=== PATIENT | male | born 1985 | race Caucasian/White ===

== ENCOUNTER 2016-03-27 06:45 | Emergency (ER) | payer SELFPAY ==
[~2016-03-27] VITALS: Ht 172.7 cm; Wt 81.6 kg
--- OUTSIDE RECORDS SUMMARY | 2016-03-27 06:55 | XMS REPORT | Continuity of Care Document ---
Author Author [facility] Organization [facility] Address Unknown Phone Unavailable Care Team Providers Care Low Vision Therapist Name Role Phone No Pcp, Na PCP Unavailable Source Comments Some departments are not documenting in the electronic medical record. If you do not see the information that you expected, contact Release of Information in the Health Information Management department at [phone] for further assistance in locating additional records.[facility] Active Allergies and Adverse Reactions Allergen Noted Date Severity Reactions Comments Bactrim 02/10/2016 Medium HIVES Haldol 02/17/2016 High DYSTONIA Lock jaw and "eyes roll to the back of his head" K-Flex 02/10/2016 Medium HIVES Sulfa (Sulfonamide 02/10/2016 Medium HIVES Antibiotics) Current Medications Prescription Sig. Disp. Refills Start End Date Status Date ascorbic acid (VITAMIN C) Take 1,000 mg by mouth Active 500 mg tablet daily. Indications: VITAMIN C DEFICIENCY MULTIVITAMIN PO Take 1 Tab by mouth Active daily. ibuprofen (ADVIL) 200 mg Take 400 mg by mouth Active tablet every 6 hours as needed for Pain. Take with food. sertraline (ZOLOFT) 100 Take 1 Tab by mouth 30 Tab 0 02/18/19 Active mg tablet daily. 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 Suicide attempt (HCC) 02/10/2016 Sinus tachycardia 02/10/2016 Tobacco abuse 02/10/2016 Hypophosphatemia 02/10/2016 Hypokalemia 02/10/2016 Resolved Problems Problem Noted Date Resolved Date Intentional acetaminophen overdose (HCC) 02/10/2016 02/18/2016 Salicylate overdose 02/10/2016 02/18/2016 Most Recent Encounters Date Type Specialty Providers Description 02/10/2016 Hospital Intensive Care Travis Decker MD Acute hepatic failure - Encounter Jayna Bangura MD 02/12/2016 Social History Tobacco Use Types Packs/Day Years Used Date Current Every Day Smoker Cigarettes 1 10 Tobacco Cessation: Ready to Quit: No; Counseling Given: No Comments: Yes Alcohol Use Drinks/Week oz/Week Comments Yes 0 Standard 18.0 yes, patient with polysubstance history drinks or equivalent 30 Shots of liquor Last Filed Vital Signs Vital Sign Reading Time Taken Blood Pressure 118/67 02/19/2016 9:00 AM HOSPITAL RECEIVING CLERK Pulse 83 02/19/2016 9:00 AM HOSPITAL RECEIVING CLERK Temperature 36.7 C (98.1 F) 02/19/2016 9:00 AM HOSPITAL RECEIVING CLERK Respiratory Rate - - Height 1.7 m (5' 6.93") 02/12/2016 6:00 PM HOSPITAL RECEIVING CLERK Weight 74.5 kg (164 lb 3.9 oz) 02/12/2016 6:00 PM HOSPITAL RECEIVING CLERK Body Mass Index 25.78 02/12/2016 6:00 PM HOSPITAL RECEIVING CLERK Oxygen Saturation 98% 02/19/2016 9:00 AM HOSPITAL RECEIVING CLERK Plan of Care Health Maintenance Due Date Last Done Comments Physical (Comprehensive) 12/22/1991 Exam Pertussis Vaccine 12/22/1995 Tetanus Vaccine 2001 Influenza Vaccine 10/16/2015 Procedures from Last 3 Months Procedure Name Priority Date/Time Associated Diagnosis Comments TELEMETRY STRIPS-SCAN 02/14/2016 Results for this 7:32 AM HOSPITAL RECEIVING CLERK procedure are in the results section. ECG UNCONFIRMED-SCAN 02/13/2016 Results for this 4:24 PM HOSPITAL RECEIVING CLERK procedure are in the results section. ECG-SCAN 02/11/2016 Results for this 7:25 AM HOSPITAL RECEIVING CLERK procedure are in the results section. Results from Last 3 Months PROTIME INR (PT) (02/19/2016 10:00 AM)Only the most recent of 4 results within the time period is included. Component Value Range INR 1.0 0.8-1.2 Specimen Blood COMPREHENSIVE METABOLIC PANEL (02/19/2016 10:00 AM)Only the most recent of 8 results within the time period is included. Component Value Range Sodium 139 137-147 MMOL/L Potassium 4.5 3.5-5.1 MMOL/L Chloride 102 98-110 MMOL/L Glucose 85 70-100 MG/DL Blood Urea Nitrogen 12 7-25 MG/DL Creatinine 0.87 0.4-1.24 MG/DL Calcium 9.9 8.5-10.6 MG/DL Total Protein 7.0 6.0-8.0 G/DL Total Bilirubin 0.6 0.3-1.2 MG/DL Albumin 4.5 3.5-5.0 G/DL Alk Phosphatase 61 25-110 U/L AST (SGOT) 344 (H) 7-40 U/L CO2 30 21-30 MMOL/L ALT (SGPT) 1024 (H) 7-56 U/L Anion Gap 7 3-12 eGFR Non >60Comment: >60 mL/min The eGFR is not validated for use in drug dosing adjustments. Continue to use estimated creatinine clearance per dosing reference text. Please contact the Clinical Pharmacist for questions. eGFR >60Comment: >60 mL/min The eGFR is not validated for use in drug dosing adjustments. Continue to use estimated creatinine clearance per dosing reference text. Please contact the Clinical Pharmacist for questions. Specimen Blood TELEMETRY STRIPS-SCAN (02/14/2016 7:32 AM) Narrative Ordered by an unspecified provider. ECG UNCONFIRMED-SCAN (02/13/2016 4:24 PM) Narrative Ordered by an unspecified provider. CMV QUANT PCR-BLOOD (02/12/2016 8:45 AM) Component Value Range CMV DNA Quant PCR Negative for CMV CMV Comment-Blood This assay uses analyte specific reagents to detect CMV DNA in plasma or fluid. It has not been cleared or approved by the US Food and Drug Administration. The performance characteristics were determined by the [facility]. Results should be correlated with clinical findings. Specimen Blood HEMOCHROMATOSIS HFE GENE ANAL (02/12/2016 3:50 AM) Component Value Range Result Summary COMPLEX (SEE RESULT AND INTERPRETATION) [facility] Results C282Y: Not detected. H63D: Two copies of the H63D mutation were identified. [facility] . This result may be consistent with, but does not confirm a diagnosis of hereditary hemochromatosis (HH). This genotype is found in approximately 1 to 4% of patients with HH in the [place] population. However, the penetrance of this genotype is low and approximately 3 to 5% of clinically unaffected individuals are homozygous for p.H63D. For other ethnicities, the frequency and penetrance of this genotype may differ. This assay does not rule out the presence of other disease-causing mutations in the HFE gene or in other genes associated with hemochromatosis. Genotyping results should be interpreted in the context of clinical findings, family history, and other laboratory testing (e.g. serum transferrin-iron saturation and serum ferritin). Genetic testing and other laboratory testing of an affected family member can determine if this result is of predictive value for this individual. Since the p.H63D alteration has been identified, genetic testing and clinical evaluations of at risk family members could be considered. A genetic consultation may be of benefit. ADDITIONAL INFORMATION An online research opportunity called [employer] ([email or web address]), a project of [employer], is available for the recipient of this genetic test. This patient registry collects de-identified genetic and health information to advance the knowledge of genetic variants. [facility] is a collaborator of [employer]. This may not be applicable for all tests. Test results should be interpreted in the context of clinical findings, family history, and other laboratory data. Misinterpretation of results may occur if the information provided is inaccurate or incomplete. Rare polymorphisms exist that could lead to false-negative or false-positive results. If results obtained do not match the clinical findings, additional testing should be considered. Bone Marrow transplants from allogenic donors will interfere with testing. Call [facility] for instructions for testing patients who have received a bone marrow transplant. Multiple in-silico evaluation tools may have been used to assist in the interpretation of these results. Of note, the sensitivity and specificity of these tools for the determination of pathogenicity is currently unvalidated. This test was developed and its performance characteristics determined by [facility] in a manner consistent with CLIA requirements. This test has not been cleared or approved by the U.S. Food and Drug Administration. [facility] Specimen WB Whole Blood [facility] Method A multiplex PCR based assay utilizing the [employer] Array platform was used to test for the following three mutations in the HFE gene; C282Y, H63D, and S65C. Because of the minimal effect on iron metabolism associated with the S65C mutation, it is only reported when it is found with the C282Y mutation (i.e. if the patient has the C282Y/S65C genotype). [facility] Released by SARINA KEBEDE [facility] SALICYLATE LEVEL (02/12/2016 3:50 AM)Only the most recent of 6 results within the time period is included. Component Value Range Salicylate <2.5 2.0-29.0 MG/DL Specimen Blood PHOSPHORUS (02/12/2016 3:50 AM)Only the most recent of 6 results within the time period is included. Component Value Range Phosphorus 3.5 2.0-4.0 MG/DL Specimen Blood FIBRINOGEN (02/12/2016 3:50 AM)Only the most recent of 5 results within the time period is included. Component Value Range Fibrinogen 170 (L) 200-400 MG/DL Specimen Blood MAGNESIUM (02/12/2016 3:50 AM)Only the most recent of 5 results within the time period is included. Component Value Range Magnesium 2.3 1.6-2.6 mg/dL Specimen Blood CBC AND DIFF (02/12/2016 3:50 AM)Only the most recent of 3 results within the time period is included. Component Value Range White Blood Cells 7.8 4.5-11.0 K/UL RBC 4.42 4.4-5.5 M/UL Hemoglobin 14.2 13.5-16.5 GM/DL Hematocrit 42.1 40-50 % MCV 95.1 80-100 FL MCH 32.0 26-34 PG MCHC 33.6 32.0-36.0 G/DL RDW 13.5 11-15 % Platelet Count 239 150-400 K/UL MPV 7.4 7-11 FL Neutrophils 67 41-77 % Lymphocytes 21 (L) 24-44 % Monocytes 10 4-12 % Eosinophils 1 0-5 % Basophils 1 0-2 % Absolute Neutrophil Count 5.20 1.8-7.0 K/UL Absolute Lymph Count 1.70 1.0-4.8 K/UL Absolute Monocyte Count 0.80 0-0.80 K/UL Absolute Eosinophil Count 0.10 0-0.45 K/UL Absolute Basophil Count 0.10 0-0.20 K/UL Specimen Blood ECG-SCAN (02/11/2016 7:25 AM) Narrative Ordered by an unspecified provider. URINALYSIS, MICROSCOPIC (02/11/2016 5:04 AM)Only the most recent of 2 results within the time period is included. Component Value Range WBCs,UA 0-2 0-2 /HPF RBCs,UA 0-2 0-3 /HPF MucousUA TRACE Squamous Epithelial Cells 0-2 0-5 Specimen Urine URINALYSIS DIPSTICK (02/11/2016 5:04 AM)Only the most recent of 4 results within the time period is included. Component Value Range Color,UA STRAW Turbidity,UA CLEAR CLEAR-CLEAR Specific [place]-Urine 1.006 1.003-1.035 pH,UA 8.0 5.0-8.0 Protein,UA NEG NEG-NEG Glucose,UA NEG NEG-NEG Ketones,UA NEG NEG-NEG Bilirubin,UA NEG NEG-NEG Blood,UA NEG NEG-NEG Urobilinogen,UA NORMAL NORM-NORMAL Nitrite,UA NEG NEG-NEG Leukocytes,UA NEG NEG-NEG Urine Ascorbic Acid, UA NEG NEG-NEG Specimen Urine BASIC METABOLIC PANEL (02/10/2016 11:30 PM)Only the most recent of 2 results within the time period is included. Component Value Range Sodium 141 137-147 MMOL/L Potassium 3.1 (L) 3.5-5.1 MMOL/L Chloride 107 98-110 MMOL/L CO2 27 21-30 MMOL/L Anion Gap 7 3-12 Glucose 130 (H) 70-100 MG/DL Blood Urea Nitrogen 10 7-25 MG/DL Creatinine 0.74 0.4-1.24 MG/DL Calcium 8.3 (L) 8.5-10.6 MG/DL eGFR Non >60Comment: >60 mL/min The eGFR is not validated for use in drug dosing adjustments. Continue to use estimated creatinine clearance per dosing reference text. Please contact the Clinical Pharmacist for questions. eGFR >60Comment: >60 mL/min The eGFR is not validated for use in drug dosing adjustments. Continue to use estimated creatinine clearance per dosing reference text. Please contact the Clinical Pharmacist for questions. Specimen Blood TROPONIN-I (02/10/2016 11:30 PM)Only the most recent of 3 results within the time period is included. Component Value Range Troponin-I <0.01 0.0-0.05 NG/ML Specimen Blood US DOPPLER ABD PELV RETROPER COMP (02/10/2016 9:38 PM) Impressions Upper limits of normal size liver without evidence of vascular compromise. Approved by Hiram Cerna M.D. on 02/11/2016 9:20 AM By my electronic signature, I attest that I have personally reviewed the images for this examination and formulated the interpretations and opinions expressed in this report Finalized by Radha Cavanaugh M.D. on 02/11/2016 9:43 AM. Dictated by Hiram Cerna M.D. on 02/11/2016 7:14 AM. Narrative Complete abdominal ultrasound with Doppler Clinical History: Elevated liver function test, acute hepatic failure Technique: Multiple real-time grayscale sonographic images were obtained of the abdomen. Additional color Doppler analysis was obtained. Findings: The gallbladder is slightly decompressed. The common bile duct diameter measures up to 0.4 cm. The liver measures 18.3 cm in length. No focal lesions are identified. Doppler analysis of upper abdominal vessels demonstrates patency and normal direction of flow in the hepatic veins, hepatic arteries, splenic vein and portal veins. Main portal vein velocity is up to 28 cm/sec. Proper hepatic artery resistive index is 0.7. The visualized pancreas is unremarkable. The right kidney measures 11.6 cm. The left kidney measures 12.3 cm. No hydronephrosis or nephrolithiasis is identified. The urinary bladder is unremarkable. The spleen measures 10.9 cm without focal lesions. No abdominal or pelvic ascites is identified. The visualized aorta is unremarkable. The visualized portion of the upper IVC is unremarkable. Procedure Note Interface, Radiant Results - Wed Feb 11, 2016 4:00 PM HOSPITAL RECEIVING CLERK Complete abdominal ultrasound with Doppler Clinical History: Elevated liver function test, acute hepatic failure Technique: Multiple real-time grayscale sonographic images were obtained of the abdomen. Additional color Doppler analysis was obtained. Findings: The gallbladder is slightly decompressed. The common bile duct diameter measures up to 0.4 cm. The liver measures 18.3 cm in length. No focal lesions are identified. Doppler analysis of upper abdominal vessels demonstrates patency and normal direction of flow in the hepatic veins, hepatic arteries, splenic vein and portal veins. Main portal vein velocity is up to 28 cm/sec. Proper hepatic artery resistive index is 0.7. The visualized pancreas is unremarkable. The right kidney measures 11.6 cm. The left kidney measures 12.3 cm. No hydronephrosis or nephrolithiasis is identified. The urinary bladder is unremarkable. The spleen measures 10.9 cm without focal lesions. No abdominal or pelvic ascites is identified. The visualized aorta is unremarkable. The visualized portion of the upper IVC is unremarkable. IMPRESSION Upper limits of normal size liver without evidence of vascular compromise. Approved by Hiram Cerna M.D. on 02/11/2016 9:20 AM By my electronic signature, I attest that I have personally reviewed the images for this examination and formulated the interpretations and opinions expressed in this report Finalized by Radha Cavanaugh M.D. on 02/11/2016 9:43 AM. Dictated by Hiram Cerna M.D. on 02/11/2016 7:14 AM. US ABDOMEN COMPLETE (02/10/2016 9:38 PM) Impressions Upper limits of normal size liver without evidence of vascular compromise. Approved by Hiram Cerna M.D. on 02/11/2016 9:20 AM By my electronic signature, I attest that I have personally reviewed the images for this examination and formulated the interpretations and opinions expressed in this report Finalized by Radha Cavanaugh M.D. on 02/11/2016 9:43 AM. Dictated by Hiram Cerna M.D. on 02/11/2016 7:14 AM. Narrative Complete abdominal ultrasound with Doppler Clinical History: Elevated liver function test, acute hepatic failure Technique: Multiple real-time grayscale sonographic images were obtained of the abdomen. Additional color Doppler analysis was obtained. Findings: The gallbladder is slightly decompressed. The common bile duct diameter measures up to 0.4 cm. The liver measures 18.3 cm in length. No focal lesions are identified. Doppler analysis of upper abdominal vessels demonstrates patency and normal direction of flow in the hepatic veins, hepatic arteries, splenic vein and portal veins. Main portal vein velocity is up to 28 cm/sec. Proper hepatic artery resistive index is 0.7. The visualized pancreas is unremarkable. The right kidney measures 11.6 cm. The left kidney measures 12.3 cm. No hydronephrosis or nephrolithiasis is identified. The urinary bladder is unremarkable. The spleen measures 10.9 cm without focal lesions. No abdominal or pelvic ascites is identified. The visualized aorta is unremarkable. The visualized portion of the upper IVC is unremarkable. Procedure Note Interface, Radiant Results - TueFeb 11, 2016 4:00 PM HOSPITAL RECEIVING CLERK Complete abdominal ultrasound with Doppler Clinical History: Elevated liver function test, acute hepatic failure Technique: Multiple real-time grayscale sonographic images were obtained of the abdomen. Additional color Doppler analysis was obtained. Findings: The gallbladder is slightly decompressed. The common bile duct diameter measures up to 0.4 cm. The liver measures 18.3 cm in length. No focal lesions are identified. Doppler analysis of upper abdominal vessels demonstrates patency and normal direction of flow in the hepatic veins, hepatic arteries, splenic vein and portal veins. Main portal vein velocity is up to 28 cm/sec. Proper hepatic artery resistive index is 0.7. The visualized pancreas is unremarkable. The right kidney measures 11.6 cm. The left kidney measures 12.3 cm. No hydronephrosis or nephrolithiasis is identified. The urinary bladder is unremarkable. The spleen measures 10.9 cm without focal lesions. No abdominal or pelvic ascites is identified. The visualized aorta is unremarkable. The visualized portion of the upper IVC is unremarkable. IMPRESSION Upper limits of normal size liver without evidence of vascular compromise. Approved by Hiram Cerna M.D. on 02/11/2016 9:20 AM By my electronic signature, I attest that I have personally reviewed the images for this examination and formulated the interpretations and opinions expressed in this report Finalized by Radha Cavanaugh M.D. on 02/11/2016 9:43 AM. Dictated by Hiram Cerna M.D. on 02/11/2016 7:14 AM. HEPATITIS C GENOTYPE (02/10/2016 5:30 PM) Component Value Range Hepatitis C Genotype PCR Type 3 Detects all 6 HCV genotypes including types 1-6 and subtypes 1a, 1b, 2a/2c, 2b. This test has a limited ability to detect mixed genotypes. This test was developed and its performance characteristics determined by [facility]. It has not been cleared or approved by the U.S. Food and Drug Administration.-Results should be used in conjunction with clinical findings, and should not form the sole basis for a diagnosis or treatment decision.- PCR tests are performed pursuant to a license agreement with [employer]. Testing Performed At: [facility] [id number] CLIA ID: [id number] FERRITIN (02/10/2016 5:30 PM) Component Value Range Ferritin 136 30-300 NG/ML Specimen Blood IRON + BINDING CAPACITY + %SAT (02/10/2016 5:30 PM) Component Value Range Iron 212 (H) 50-185 MCG/DL Iron Binding-TIBC 282 270-380 MCG/DL % Saturation 75 (H) 28-42 % Specimen Blood ANTI-MITOCHONDRIAL ANTIBODY (02/10/2016 5:30 PM) Component Value Range Anti-Mitochondrial Screen <20 <20 TITER Specimen Blood ANTI-SMOOTH MUSCLE AB (02/10/2016 5:30 PM) Component Value Range Anti-Smooth Muscle Screen <20 <20 TITER Specimen Blood ANTI-NUCLEAR ANTIBODY(JAMES) (02/10/2016 5:30 PM) Component Value Range JAMES Screen <80 <80 TITER Specimen Blood ALPHA 1 ANTITRYPSIN PHENOTYPE (02/10/2016 5:30 PM) Component Value Range Alpha 1 Anti-Trypsin 120Comment: Reference range: 100 to 190 Unit: mg/dL [facility] Alpha 1 Antitrypsin M Phenotype Unit: bands An unidentified allele is also noted. [facility] Specimen Blood CERULOPLASMIN (02/10/2016 5:30 PM) Component Value Range Ceruloplasmin 22.0 20.0-60.0 mg/dL Specimen Blood HEPATITIS C VIRAL LOAD PCR QUANT (02/10/2016 5:30 PM) Component Value Range Hepatitis C PCR [id number] (H)Comment: <12 IU/ML Quantitative The test method detects HCV viral load using the [employer] RealTime assay. Please correlate results with the clinical status of the patient. Log 10 HCV 6.98 (H) <1.08 IU/mL Specimen Blood HEPATITIS B SURFACE AB (02/10/2016 5:30 PM) Component Value Range Anti HBs <2.5Comment: mIU/ml Hepatitis B Surface Antibody Reference Ranges >12.0 Positive 8.0-12.0 Equivocal <8.0 Negative Specimen Blood HEPATITIS PANEL, ACUTE (02/10/2016 5:30 PM) Component Value Range Hepatitis A IgM NEG Anti HBc IgM NEG HBsAg NEG Anti HCV Reactive, See confirmation test HEP C PCR Quant. Specimen Blood LDH-LACTATE DEHYDROGENASE (02/10/2016 5:30 PM) Component Value Range Lactate Dehydrogenase 150 100-210 U/L Specimen Blood FACTOR 5 ASSAY (02/10/2016 5:30 PM) Component Value Range Factor 5 114 50-150 % Specimen Blood PHENCYCLIDINES-URINE RANDOM (02/10/2016 1:00 PM) Component Value Range Phencyclidine (PCP) NEGComment: NEG-NEG RESULTS WERE OBTAINED BY IMMUNOASSAY AND ARE PRESUMPTIVE ONLY. POSITIVE INDICATES THE PRESENCE OF SUBSTANCE WITH CHARACTERISTICS SIMILAR TO DRUG-DRUG CLASS OR METABOLITE IN CONC. EQUAL TO OR EXCEEDING VALUES LISTED. PHENCYCLIDINE (PCP) 25 NG/ML Specimen Urine OPIATES-URINE RANDOM (02/10/2016 1:00 PM) Component Value Range Opiates-Urine NEGComment: NEG-NEG RESULTS WERE OBTAINED BY IMMUNOASSAY AND ARE PRESUMPTIVE ONLY. POSITIVE INDICATES THE PRESENCE OF SUBSTANCE WITH CHARACTERISTICS SIMILAR TO DRUG-DRUG CLASS OR METABOLITE IN CONC. EQUAL TO OR EXCEEDING VALUES LISTED. OPIATES 200 0 NG/ML Specimen Urine COCAINE-URINE RANDOM (02/10/2016 1:00 PM) Component Value Range Cocaine-Urine NEGComment: NEG-NEG RESULTS WERE OBTAINED BY IMMUNOASSAY AND ARE PRESUMPTIVE ONLY. POSITIVE INDICATES THE PRESENCE OF SUBSTANCE WITH CHARACTERISTICS SIMILAR TO DRUG-DRUG CLASS OR METABOLITE IN CONC. EQUAL TO OR EXCEEDING VALUES LISTED. COCAINE 300 NG/ML Specimen Urine CANNABINOIDS-URINE RANDOM (02/10/2016 1:00 PM) Component Value Range THC POS (A)Comment: NEG-NEG RESULTS WERE OBTAINED BY IMMUNOASSAY AND ARE PRESUMPTIVE ONLY. POSITIVE INDICATES THE PRESENCE OF SUBSTANCE WITH CHARACTERISTICS SIMILAR TO DRUG-DRUG CLASS OR METABOLITE IN CONC. EQUAL TO OR EXCEEDING VALUES LISTED. CANNABINOIDS 50 NG/ML Specimen Urine BENZODIAZEPINES-URINE RANDOM (02/10/2016 1:00 PM) Component Value Range Benzodiazepines NEGComment: NEG-NEG RESULTS WERE OBTAINED BY IMMUNOASSAY AND ARE PRESUMPTIVE ONLY. POSITIVE INDICATES THE PRESENCE OF SUBSTANCE WITH CHARACTERISTICS SIMILAR TO DRUG-DRUG CLASS OR METABOLITE IN CONC. EQUAL TO OR EXCEEDING VALUES LISTED. BENZODIAZEPINES 200 NG/ML Specimen Urine BARBITURATES-URINE RANDOM (02/10/2016 1:00 PM) Component Value Range Barbiturates,Urine NEGComment: NEG-NEG RESULTS WERE OBTAINED BY IMMUNOASSAY AND ARE PRESUMPTIVE ONLY. POSITIVE INDICATES THE PRESENCE OF SUBSTANCE WITH CHARACTERISTICS SIMILAR TO DRUG-DRUG CLASS OR METABOLITE IN CONC. EQUAL TO OR EXCEEDING VALUES LISTED. BARBITURATES 200 NG/ML Specimen Urine AMPHETAMINES-URINE RANDOM (02/10/2016 1:00 PM) Component Value Range Amphetamines NEGComment: NEG-NEG RESULTS WERE OBTAINED BY IMMUNOASSAY AND ARE PRESUMPTIVE ONLY. POSITIVE INDICATES THE PRESENCE OF SUBSTANCE WITH CHARACTERISTICS SIMILAR TO DRUG-DRUG CLASS OR METABOLITE IN CONC. EQUAL TO OR EXCEEDING VALUES LISTED. AMPHETAMINES 1000 NG/ML Specimen Urine BLOOD GASES, ARTERIAL (02/10/2016 12:25 PM) Component Value Range pH-Arterial 7.58 (H) 7.35-7.45 pCO2-Arterial 24 (L) 35-45 MMHG pO2-Arterial 115 (H) 80-100 MMHG Base Excess-Arterial 2.1 MMOL/L O2 Sat-Arterial 98.8 95-99 % Gkofnckyorx-ATW-Qrx 26.2 21-28 MMOL/L Specimen Blood, arterial - Blood CHEST SINGLE VIEW (02/10/2016 12:15 PM) Impressions No acute cardiopulmonary abnormality. Approved by Gabby Benjamin M.D. on 02/10/2016 2:45 PM By my electronic signature, I attest that I have personally reviewed the images for this examination and formulated the interpretations and opinions expressed in this report Finalized by Radha Cavanaugh M.D. on 02/10/2016 3:45 PM. Dictated by Gabby Benjamin M.D. on 02/10/2016 12:42 PM. Narrative PORTABLE AP CXR Clinical Indication: 30-year-old male. Respiratory insufficiency Comparison: None Findings: The cardiac silhouette is within normal limits of size. There is no pulmonary vascular congestion. No pneumothorax, consolidating pneumonia or pleural effusion is identified. Procedure Note Interface, Radiant Results - Tue Feb 10, 2016 3:49 PM HOSPITAL RECEIVING CLERK PORTABLE AP CXR Clinical Indication: 30-year-old male. Respiratory insufficiency Comparison: None Findings: The cardiac silhouette is within normal limits of size. There is no pulmonary vascular congestion. No pneumothorax, consolidating pneumonia or pleural effusion is identified. IMPRESSION No acute cardiopulmonary abnormality. Approved by Gabby Benjamin M.D. on 02/10/2016 2:45 PM By my electronic signature, I attest that I have personally reviewed the images for this examination and formulated the interpretations and opinions expressed in this report Finalized by Radha Cavanaugh M.D. on 02/10/2016 3:45 PM. Dictated by Gabby Benjamin M.D. on 02/10/2016 12:42 PM. POC GLUCOSE (02/10/2016 11:27 AM) Component Value Range Glucose, POC 143 (H) 70-100 MG/DL ALCOHOL LEVEL (02/10/2016 11:25 AM) Component Value Range Alcohol <10 MG/DL OSMOLALITY (02/10/2016 11:25 AM) Component Value Range Osmolality 283 280-307 MOSMOL/KG TRICYCLIC SCREEN (02/10/2016 11:25 AM) Component Value Range Tricyclic Screen NEGComment: NEG-NEG RESULTS WERE OBTAINED BY IMMUNOASSAY AND ARE PRESUMPTIVE ONLY. POSITIVE INDICATES THE PRESENCE OF SUBSTANCE WITH CHARACTERISTICS SIMILAR TO DRUG-DRUG CLASS OR METABOLITE IN CONC. EQUAL TO OR EXCEEDING VALUES LISTED. TRICYCLIC ANTIDEPRESSANTS 300 NG/ML LIPASE (02/10/2016 11:25 AM) Component Value Range Lipase 7 (L) 11-82 U/L Specimen Blood AMMONIA (02/10/2016 11:25 AM) Component Value Range Ammonia 32 9-35 MCMOL/L Specimen Blood ACETAMINOPHEN LEVEL (02/10/2016 11:25 AM) Component Value Range Acetaminophen <10.0 <20.1 MCG/ML Specimen Blood IONIZED CALCIUM (02/10/2016 11:25 AM) Component Value Range Ionized Calcium 0.99 (L) 1.0-1.3 MMOL/L Specimen Blood LACTIC ACID (BG - RAPID LACTATE) (02/10/2016 11:25 AM) Component Value Range Lactic Acid,BG 1.5 0.5-2.0 MMOL/L Specimen Blood PTT (APTT) (02/10/2016 11:25 AM) Component Value Range APTT 30.0 24.0-40.0 SEC Specimen Blood
--- NOTE | 2016-03-27 07:13 | ED Psychosocial ---
General Chief Complaint: Psych/Social Disorder Stated Complaint: PANIC ATTACKS,CAN'T SLEEP Nursing Triage Note: AMBULATED TO ROOM 06 ET JITTDEE ET NERVOUS. STATES HE HAS BEEN HAVING PERIODS OF SOA, SWEATY PALMS, AND FEELING VERY ANXIOUS. Source: patient Exam Limitations: no limitations History of Present Illness Time seen by provider: 07:03 Initial Comments Here with complaint of nervousness and having difficulty with sleeping. Reports anxiety. He states this is all related to having no job and having to move. Reports that he had difficulty sleeping last night. Does report some alcohol last night and did smoke marijuana last night. Denies other drugs. Since that is drink a couple coffee or 2 this morning and is having some challenges. He did get coffee as soon as he got here to the ER all waiting for triage as well. Reports that he feels like she is short of breath and is having sweaty palms. Feeling a little better now. Timing/Duration: this morning Severity: moderate Associated Symptoms: anxiety, impaired concentration, insomnia Allergies and Home Medications Allergies Coded Allergies: cephalexin (Verified Allergy, Unknown, RASH, 03/27/16) sulfamethoxazole (Verified Allergy, Unknown, RASH, 03/27/16) trimethoprim (Verified Allergy, Unknown, RASH, 03/27/16) Home Medications Gabapentin 300 Mg Capsule #180 (Reported) Mirtazapine 15 Mg Tablet #30 (Reported) Trazodone HCl 50 Mg Tablet #30 (Reported) Constitutional: see HPINo chills, No fever EENTM: no symptoms reported Respiratory: see HPI Cardiovascular: no symptoms reported Gastrointestinal: No abdominal pain, No nausea, No vomiting Psychiatric/Neurological: See HPI Anxiety Emotional Problems Past Xcrleof-Xrlvdl-Wclglf Hx Patient Social History Alcohol Use: Occasionally Uses Recreational Drug Use: Yes (POT) Drug of Choice: PAST HX OF SPEED, ADDERALL, MUSHROOMS Smoking Status: Current Everyday Smoker Recent Foreign Travel: No Contact w/Someone Who Travel: No Recent Infectious Disease Expo: No Recent Hopitalizations: No Surgeries HX Surgeries: No Respiratory Hx Respiratory Disorders: No Cardiovascular Hx Cardiac Disorders: No Neurological Hx Neurological Disorders: No Reproductive System Hx Reproductive Disorders: No Genitourinary Hx Genitourinary Disorders: No Gastrointestinal Hx Gastrointestinal Disorders: No Musculoskeletal Hx Musculoskeletal Disorders: No Endocrine Hx Endocrine Disorders: No HEENT HX ENT Disorders: No Cancer Hx Cancer: No Psychosocial Hx Psychiatric Problems: Yes Behavioral Health Disorders: Anxiety, Depression Reviewed Nursing Assessment Reviewed/Agree w Nursing PMH: Yes Physical Exam Vital Signs Vital Sign - Last 12Hours 03/27/16 07:02 Temp 98.0 Pulse 100 Resp 18 B/P 119/74 Pulse Ox 95 Capillary Refill : Less Than 3 Seconds General Appearance: WD/WN no apparent distress HEENT: PERRL/EOMI pharynx normal Neck: full range of motion supple Respiratory: lungs clear normal breath sounds Cardiovascular: regular rate, rhythm no murmur Gastrointestinal: non tender soft Extremities: normal range of motion non-tender Neurologic/Psychiatric: alert oriented x 3 Appearance/Memory: appropriate appearance appropriate insight neat Behavior/Eye Contact: cooperative good eye contact normal speech Thoughts/Hallucinations: normal thought pattern Skin: normal color warm/dry Progress/Results/Core Measures Results/Orders My Orders Orders-ADIEL FOSTER MD Hydroxyzine Oral (Vistaril Capsule) (03/27/16 07:15) Vital Signs/I&O Vital Sign - Last 12Hours 03/27/16 07:02 Temp 98.0 Pulse 100 Resp 18 B/P 119/74 Pulse Ox 95 Blood Pressure Mean: 89 Progress Note : Progress Note Seen and evaluated. Vistaril 25 mg by mouth. On reviewing his medical reconciliation from outside pharmacies, it was noted that he had 3 new prescriptions filled yesterday. I then asked him about that and he was seen by mental health provider yesterday and prescribed gabapentin, trazodone and mirtazapine. She has trazodone prescription that he still needs to have filled. I did instruct him to fill that as that will help with his sleep issues. I instructed him to follow-up with his mental health provider. Patient verbalize understanding and agreement. Discharge home with return precautions. Patient verbalize understanding instructions and agreement with plan. Departure Impression Impression: Primary Impression: Anxiety Disposition: 01 HOME, SELF-CARE Condition: Improved Departure-Patient Inst. Decision time for Depature: 07:24 Referrals: NO,LOCAL PHYSICIAN (PCP) Primary Care Physician Patient Instructions: Anxiety, Adult (DC) Add. Discharge Instructions: All discharge instructions reviewed with patient and/or family. Voiced understanding. Follow-up with your mental health provider. In [facility], you may call [address] [place] [address] for the crisis hotline and assistance. Take prescribed medicines as directed. Return for worsening, fever, vomiting, weakness, breathing problems or other concerns as needed. ADIEL FOSTER MD Mar 27, 2016 07:13
[2016-03-27] MEDS ORDERED: MIRT15TA6 (07:14)
[2016-03-27] MEDS ORDERED: TRAZ-28 (07:14)
[2016-03-27] MEDS ORDERED: GABA-488 (07:14)
[2016-03-27] MEDS ORDERED: hydrOXYzine (VISTARIL) 25 MG CAP PO ONE (07:15)
[2016-03-27 07:35] VITALS: BP 119/74
== END 2016-03-27 07:35 | disposition home or self-care (01) ==
LOC: ER 06:50
DX: F41.9 Anxiety disorder, unspecified (principal); F17.210 Nicotine dependence, cigarettes, uncomplicated; Z79.899 Other long term (current) drug therapy
CPT/HCPCS: 99283